=== PATIENT | female | born 1975 | race Two or more races ===

== ENCOUNTER 2025-01-17 16:17 | Emergency (ER) | payer MEDICAID, SELFPAY ==
[2025-01-17 16:30] VITALS: BP 118/72; PULSE 80; RESP 16; TEMP 37.3; O2SAT 97; BMI 29.3
--- NOTE | 2025-01-17 16:41 | PD.EDRME ---
Rapid Medical Screening Exam RME Arrival date/time: 01/17/25 16:17 49-year-old female presents to the Emergency Department today with her son patient reports that she has disturbances of vision from the right eye patient reports no headache patient does report that she went to the doctor yesterday who states she is beginning to develop a detached retina This is RME only patient be seen in the main ER for further evaluation Chief Complaint: Eye Problems Vital signs: Vital Signs Temperature 99.1 F 01/17/25 16:30 Pulse Rate 80 01/17/25 16:30 Respiratory Rate 16 01/17/25 16:30 Blood Pressure 118/72 01/17/25 16:30 Pulse Oximetry (%) 97 01/17/25 16:30 Oxygen Delivery Method Room Air 01/17/25 16:30
--- NOTE | 2025-01-17 16:51 | PC.NURSE ---
SON ASKED IF THEY COULD LEAVE. EXPLAINED TO SON THAT PT NEEDED TO BE SEEN BY THE ER MD BEFORE SHE COULD BE DISCHARGED. HE SAID THEY WOULD WAIT OUTSIDE.
--- NOTE | 2025-01-17 18:24 | PD.EDEYE ---
ED Eye Problem RME/HPI General Chief complaint: Eye Problems Stated complaint: VISION LOSS TO RIGHT EYE Time Seen by Provider: 01/17/25 18:22 Arrival date/time: 01/17/25 16:17 RME / HPI RME / HPI Narrative: 01/17/25 16:17 49-year-old female presents to the Emergency Department today with her son patient reports that she has disturbances of vision from the right eye patient reports no headache patient does report that she went to the doctor yesterday who states she is beginning to develop a detached retina This is RME only patient be seen in the main ER for further evaluation --------- Dr. Hernandez?s Main ED Evaluation: 49yo female Related Data Previous Rx's ?Medication ?Instructions ?Recorded [place] 5 mg-325 mg tablet 1 tab PO Q4H #10 tabs 09/30/19 (hydrocodone-acetaminophen) Allergies Allergy/AdvReac Type Severity Reaction Status Date / Time No Known Allergies Allergy Verified 09/30/19 08:08 Review of Systems Review of Systems Systems Reviewed: All systems reviewed, normal except as documented Past Medical History Social History SMOKING STATUS: Never smoker ED Exam Narrative Physical exam: GENERAL APPEARANCE: alert and oriented x 4, well-developed, well-nourished, no acute distress VITALS: All vitals were reviewed and the pulse ox is 97% on room air, which is normal according to my interpretation. HEENT: Normocephalic, atraumatic; pupils equal, round, reactive to light; EOMI; mucous membranes pink, moist; oropharynx clear NECK: Supple LUNGS: CTABL; no wheezes, no rales, no rhonchi HEART: Regular rate, regular rhythm; normal S1, S2; no murmurs ABDOMEN: non distended; normal BS; soft, no tenderness, no guarding, no rebound; no masses, no organomegaly, no hernia BACK: no CVA tenderness EXTREMITIES: atraumatic; no edema NEUROLOGIC: awake; alert and oriented x4; cranial nerves II-XII grossly intact; no focal sensory or motor deficits PSYCHIATRIC: appropriate mood and affect SKIN: warm, dry, normal color; no rashes Course Quality Measures none Vital Signs Vital signs: Vital Signs Temperature 99.1 F 01/17/25 16:30 Pulse Rate 80 01/17/25 16:30 Respiratory Rate 16 01/17/25 16:30 Blood Pressure 118/72 01/17/25 16:30 Pulse Oximetry (%) 97 01/17/25 16:30 Oxygen Delivery Method Room Air 01/17/25 16:30 Eye MDM Narrative MDM Narrative:: Scribe Attestation: 01/17/25 - Leeann Holley am scribing for and in the presence of Dr. Hernandez. Patient data External records reviewed:: [facility] previous records (Per chart review, patient has no relevant previous ED visits.) Clinical information provided by:: patient Social determinants that could affect healthcare access:: none Patient has the following chronic illnesses:: none How is presenting disease/condition affected by chronic disease/condition?: no chronic disease Evaluation data Lab and/or radiology exams considered but not ordered:: none Medications / Prescriptions Medications or Prescriptions considered but not ordered:: none Discharge Plan Prescriptions/Referrals Prescriptions/Med Rec: No Action hydrocodone-acetaminophen [[place]] 5-325 mg tablet 1 tab PO Q4H MDD 3 Qty: 10 0RF Referrals: No Primary/Family,Physician [Primary Care Provider] - In 1 week Patient/Caregiver Discharge Instructions Print Language: Nepali
--- NOTE | 2025-01-17 20:07 | PC.NURSE ---
CALLED PATIENT IN THE LOBBY AND OUTSIDE, NO ANSWER RECEIVED.
--- NOTE | 2025-01-17 20:20 | PC.NURSE ---
CALLED PATIENT IN THE LOBBY, RESTROOMS, AND OUTSIDE, NO ANSWER RECEIVED FROM PATIENT.
== END 2025-01-17 20:21 | disposition left against medical advice (07) ==
PROVIDERS: Emergency Provider Emergency Medicine
DX: H53.9 Unspecified visual disturbance (principal); Z53.21 Procedure and treatment not carried out due to patient leaving prior to being seen by health care provider
CPT/HCPCS: 99281